=== PATIENT | female | born 1995 | race Caucasian/White ===

== ENCOUNTER 2016-12-21 11:42 | Emergency (ER) | payer SELFPAY ==
--- NOTE | 2016-12-21 11:45 | EDM.PDOC ---
ED HPI Skin/Rash - General Chief Complaint: Wound Recheck Stated Complaint: [id number] SWEATGLANDS REMOVED HAS OPENED Time Seen by Provider: 12/21/16 11:44 Source: Reports: Patient, RN, RN notes reviewed History Limitations: Reports: No limitations - History of Present Illness INITIAL COMMENTS - FREE TEXT/NARRATIVE: Left without being seen. - Related Data Allergies Allergy/AdvReac Type Severity Reaction Status Date / Time No Known Allergies Allergy Verified 12/21/16 11:52 Home Meds: Ambulatory Orders Medication Instructions Recorded Confirmed . [No Known Home Meds] 12/21/16 12/21/16 ED ROS GENERAL - Review of Systems Review Of Systems: Unable To Obtain ED EXAM, SKIN/RASH Exam: Not Obtained Course - Vital Signs Last Recorded V/S: Last Vital Signs Temp 36.4 C 12/21/16 11:48 Pulse 72 12/21/16 11:48 Resp 16 12/21/16 11:48 BP 127/79 12/21/16 11:48 Pulse Ox 100 12/21/16 11:48 Departure - Departure Time of Disposition: 12:50 Disposition: Left Without Being Seen 07 Condition: undetermined Clinical Impression: Patient left without being seen Forms: Refusal of Medical Screening
== END 2016-12-21 13:05 | disposition left against medical advice (07) ==
LOC: DL.ED 11:42
DX: Z53.21 Procedure and treatment not carried out due to patient leaving prior to being seen by health care provider (principal)